=== PATIENT | male | born 1990 | race Caucasian/White ===

== ENCOUNTER 2020-11-30 14:54 | Emergency (ER) | payer MEDICAID ==
[~2020-11-30] VITALS: Ht 170.2 cm; Wt 77.3 kg
[2020-11-30 14:55] VITALS: BP 151/84
== END 2020-11-30 16:18 | disposition left against medical advice (07) ==
LOC: EMS 15:00
DX: R45.6 Violent behavior (principal); Z53.21 Procedure and treatment not carried out due to patient leaving prior to being seen by health care provider

== ENCOUNTER 2020-12-17 20:20 | Inpatient (IN) | payer MEDICAID ==
[~2020-12-17] VITALS: Ht 170.2 cm; Wt 81.8 kg
[2020-12-17 21:38] LABS: BASOPHILS % (AUTO) 0.6 % (0.0-2.0); EOSINOPHILS % (AUTO) 0.6 % (1.0-6.0); HEMATOCRIT 46.2 % (41-53); HEMOGLOBIN 15.7 g/dL (13.5-17.5); LYMPHOCYTES # (AUTO) 2.2 K/uL (1.0-4.8); LYMPHOCYTES % (AUTO) 31.1 % (22.0-44.0); MEAN CORPUSCULAR HEMOGLOBIN 29.9 pg (26.0-34.0); MEAN CORPUSCULAR HGB CONC 34.1 G/dL (31.0-37.0); MEAN CORPUSCULAR VOLUME 88 fL (80-100); MONOCYTES # (AUTO) 0.6 K/uL (0.1-1.0); MONOCYTES % (AUTO) 8.5 % (2.0-9.0); NEUTROPHILS # (AUTO) 4.2 K/uL (1.8-7.7); NEUTROPHILS % (AUTO) 59.2 % (40.0-70.0); PLATELET COUNT (AUTO) 215 K/uL (150-450); RED BLOOD CELL COUNT(AUTO) 5.27 MIL/uL (4.50-5.90); RED CELL DISTRIBUTION WIDTH 13.1 % (11.5-14.5)
[2020-12-17 21:47] LABS: CARBON DIOXIDE 32 mmol/L (22-29); CHLORIDE 104 mmol/L (98-107); POTASSIUM 4.5 mmol/L (3.5-5.1); SODIUM SERUM 140 mmol/L (136-145)
[2020-12-17 21:48] LABS: ANION GAP 4 mmol/L (8-16); CALCIUM, TOTAL 9.2 mg/dL (8.8-10.5); CREATININE 0.96 mg/dL (0.60-1.30); GLOMERULAR FILTR. RATE CALC > 60 mL/min (>60); GLUCOSE,RANDOM 96 mg/dL (70-110); UREA NITROGEN, BLOOD 16 mg/dL (7-18)
[2020-12-17 21:53] LABS: ALANINE AMINOTRANSFERASE 32 U/L (12-78); ALBUMIN 4.4 g/dL (3.4-5.0); ALKALINE PHOSPHATASE 55 U/L (46-116); ASPARTATE AMINOTRANSFERASE 25 U/L (15-37); BILIRUBIN,TOTAL 0.6 mg/dL (0.1-1.0); TOTAL PROTEIN, SERUM 7.8 g/dL (6.4-8.2)
[2020-12-17] MEDS ORDERED: HALOPERIDOL 5 MG TABLET PO PRN (22:30)
[2020-12-17] MEDS ORDERED: LORazepam 2 MG TABLET PO PRN (22:30)
[2020-12-17] MEDS ORDERED: ZOLPIDEM TARTRATE 10 MG TABLET PO PRN (22:30)
[2020-12-17 22:50] LABS: APPEARANCE,URINE CLEAR (CLEAR); BILIRUBIN,URINE NEGATIVE (NEGATIVE); GLUCOSE, URINE (UA) NEGATIVE (NEGATIVE); KETONES,URINE NEGATIVE (NEGATIVE); LEUKOCYTE ESTERASE ,URINE NEGATIVE (NEGATIVE); NITRATE,URINE NEGATIVE (NEGATIVE); OCCULT BLOOD,URINE NEGATIVE (NEGATIVE); PH,URINE 6.5 (5.0-8.0); PROTEIN,URINE NEGATIVE (NEGATIVE); UROBILINOGEN,URINE 0.2 mg/dL (<=1.0)
[2020-12-17 22:58] LABS: AMPHET/METH SCREEN,URINE NEGATIVE (NEGATIVE); BARBITURATE SCREEN, URINE NEGATIVE (NEGATIVE); BENZODIAZEPINES SCREEN,URINE NEGATIVE (NEGATIVE); CANNABINOID SCREEN,URINE NEGATIVE (NEGATIVE); COCAINE SCREEN,URINE NEGATIVE (NEGATIVE); METHADONE SCREEN, URINE NEGATIVE (NEGATIVE); OPIATE SCREEN,URINE NEGATIVE (NEGATIVE); PHENCYCLIDINE SCREEN,URINE NEGATIVE (NEGATIVE)
[2020-12-18 02:19] LABS: COVID AG,FIA SOURCE NASOPHARYNGEAL
[2020-12-18 02:34] LABS: CHOL/HDL RATIO 2.7 (4.2-7.3); CHOLESTEROL 172 mg/dL (131-200); HDL CHOLESTEROL 63 mg/dL (40-60); LDL CHOL (CALC.) 91 mg/dL (0-130); TRIGLYCERIDES 91 mg/dL (15-150)
[2020-12-19] MEDS ORDERED: MAG HYDROX/AL HYDROX/SIMETH ES 30 ML SUSPENSION UDCUP PO PRN (07:00)
[2020-12-19] MEDS ORDERED: GuaiFENesin/D-METHORPHAN [SUGAR-FREE] 200-20MG/10 ML SYRUP UDCUP PO PRN (07:00)
[2020-12-19] MEDS ORDERED: ACETAMINOPHEN 325 MG TABLET PO PRN (07:00)
[2020-12-19] MEDS ORDERED: MAGNESIUM HYDROXIDE SUSPENSION 30 ML UDCUP PO PRN (07:00)
[2020-12-19] MEDS ORDERED: NICOTINE 14 MG/24 HOUR PATCH TD PRN (07:00)
[2020-12-19] MEDS ORDERED: LOPERAMIDE HCL 2 MG CAPSULE PO PRN (07:00)
[2020-12-19] MEDS ORDERED: PETROLATUM,WHITE 28 GM JELLY TP PRN (07:00)
[2020-12-19] MEDS ORDERED: DOCUSATE SODIUM 100 MG CAPSULE PO PRN (07:00)
[2020-12-19] MEDS ORDERED: CloNIDine HCL 0.1 MG TABLET PO PRN (07:00)
[2020-12-19] MEDS ORDERED: IBUPROFEN 400 MG TABLET PO PRN (07:00)
[2020-12-19] MEDS ORDERED: ALBUTEROL SULFATE HFA 90 MCG/PUFF 8 GM INHALER IH PRN (07:00)
[2020-12-19] MEDS ORDERED: ONDANSETRON HCL 4 MG TABLET PO PRN (07:00)
[2020-12-19 08:39] VITALS: BP 122/75
[2020-12-19 16:34] VITALS: BP 123/76
[2020-12-19] MEDS: RisperiDONE 2 MG TABLET PO SCH (16:35)
[2020-12-20 06:19] VITALS: BP 120/78
[2020-12-20 08:21] VITALS: BP 116/67
[2020-12-20] MEDS: RisperiDONE 2 MG TABLET PO SCH ×2 (09:57→16:36)
[2020-12-20 16:44] VITALS: BP 114/70
[2020-12-21 01:45] VITALS: BP 119/75
[2020-12-21 08:48] VITALS: BP 124/72
[2020-12-21] MEDS ORDERED: MULTIVITAMINS WITH MINERALS, THERAPEUTIC TABLET PO SCH (09:00)
[2020-12-21] MEDS: RisperiDONE 2 MG TABLET PO SCH ×2 (09:29→16:46)
[2020-12-21 16:38] VITALS: BP 117/65
[2020-12-21] MEDS ORDERED: RISP2TAB76 PO ×2 (16:39→16:40)
== END 2020-12-21 21:05 | disposition left against medical advice (07) | DRG 750 ==
LOC: EMS 20:22 → B2S 12-18 18:34
PROVIDERS: ADMIT Psychiatry & Neurology Child & Adolescent Psychiatry; ATTEND Psychiatry & Neurology Child & Adolescent Psychiatry
DX: F25.9 Schizoaffective disorder, unspecified (principal); F31.9 Bipolar disorder, unspecified; G47.00 Insomnia, unspecified; R05 Cough; R10.13 Epigastric pain; R03.0 Elevated blood-pressure reading, without diagnosis of hypertension; Z91.14 Patient's other noncompliance with medication regimen; Z20.822 Contact with and (suspected) exposure to COVID-19
CPT/HCPCS: 80053; 80061; 81003; 85025; 99285; G0480

== ENCOUNTER 2023-11-25 09:22 | Inpatient (IN) | payer MEDICAID, OTHER ==
[~2023-11-25] VITALS: Ht 167.6 cm; Wt 83.8 kg
[~2023-11-25 09:22] MED LIST: RISP2TAB76 PO
[2023-11-25 10:20] LABS: BASOPHILS % (AUTO) 0.3 % (0.0-2.0); EOSINOPHILS % (AUTO) 0.2 % (1.0-6.0); HEMATOCRIT 46.9 % (41-53); LYMPHOCYTES # (AUTO) 1.6 K/uL (1.0-4.8); LYMPHOCYTES % (AUTO) 13.6 % (22.0-44.0); MEAN CORPUSCULAR HEMOGLOBIN 30.2 pg (26.0-34.0); MEAN CORPUSCULAR HGB CONC 34.2 G/dL (31.0-37.0); MEAN CORPUSCULAR VOLUME 88 fL (80-100); MONOCYTES % (AUTO) 8.2 % (2.0-9.0); NEUTROPHILS # (AUTO) 9.4 K/uL (1.8-7.7); NEUTROPHILS % (AUTO) 77.7 % (40.0-70.0); PLATELET COUNT (AUTO) 234 K/uL (150-450); RED CELL DISTRIBUTION WIDTH 13.5 % (11.5-14.5)
[2023-11-25 10:22] LABS: ANION GAP 14 mmol/L (8-16); CALCIUM, TOTAL 9.2 mg/dL (8.8-10.5); CARBON DIOXIDE 23 mmol/L (22-29); CHLORIDE 101 mmol/L (98-107); CREATININE 0.97 mg/dL (0.60-1.30); GLOMERULAR FILTR. RATE CALC > 60 mL/min (>60); GLUCOSE,RANDOM 87 mg/dL (70-110); POTASSIUM 3.4 mmol/L (3.5-5.1); SODIUM SERUM 138 mmol/L (136-145); UREA NITROGEN, BLOOD 14 mg/dL (7-18)
[2023-11-25 10:38] LABS: ALCOHOL, BLOOD (SERUM) < 3 mg/dL (0-10)
[2023-11-25 10:53] LABS: COVID AG,FIA SOURCE NASAL SWAB
[2023-11-25] MEDS: HALOPERIDOL LACTATE 5 MG/ML VIAL IM ONE (10:55)
[2023-11-25] MEDS: LORazepam 2 MG/ML VIAL IM ONE (10:55)
[2023-11-25] MEDS: DiphenhydrAMINE HCL 50 MG/ML VIAL IM ONE (10:55)
[2023-11-25 11:12] LABS: SARS-COV2 (COVID) ANTIGEN,FIA Negative (Negative)
[2023-11-25] MEDS ORDERED: HALOPERIDOL 5 MG TABLET PO PRN (12:45)
[2023-11-25] MEDS ORDERED: LORazepam 2 MG TABLET PO PRN (12:45)
[2023-11-25] MEDS ORDERED: ZOLPIDEM TARTRATE 10 MG TABLET PO PRN (12:45)
[2023-11-25] MEDS ORDERED: NICOTINE 14 MG/24 HOUR PATCH TD PRN (19:15)
[2023-11-25] MEDS ORDERED: DOCUSATE SODIUM 100 MG CAPSULE PO PRN (19:15)
[2023-11-25] MEDS ORDERED: IBUPROFEN 400 MG TABLET PO PRN (19:15)
[2023-11-25] MEDS ORDERED: CloNIDine HCL 0.1 MG TABLET PO PRN (19:15)
[2023-11-25] MEDS ORDERED: GuaiFENesin/D-METHORPHAN [SUGAR-FREE] 200-20MG/10 ML SYRUP UDCUP PO PRN (19:15)
[2023-11-25] MEDS ORDERED: LOPERAMIDE HCL 2 MG CAPSULE PO PRN (19:15)
[2023-11-25] MEDS ORDERED: MAGNESIUM HYDROXIDE SUSPENSION 30 ML UDCUP PO PRN (19:15)
[2023-11-25] MEDS ORDERED: ALBUTEROL SULFATE HFA 90 MCG/PUFF 8 GM INHALER IH PRN (19:15)
[2023-11-25] MEDS ORDERED: MAG HYDROX/ALUMINUM HYD/SIMETH ES 30 ML SUSPENSION UDCUP PO PRN (19:15)
[2023-11-25] MEDS ORDERED: PETROLATUM,WHITE 28 GM JELLY TP PRN (19:15)
[2023-11-25] MEDS ORDERED: ACETAMINOPHEN 325 MG TABLET PO PRN (19:15)
[2023-11-25] MEDS ORDERED: ONDANSETRON 4 MG TABLET PO PRN (19:15)
[2023-11-25 21:10] VITALS: BP 116/75; PULSE 85; RESP 18; TEMP 97.5; O2SAT 99
[2023-11-26 07:58] LABS: HEMOGLOBIN A1C 5.1 % (3.8-5.6)
[2023-11-26 08:10] LABS: BASOPHILS % (AUTO) 0.4 % (0.0-2.0); EOSINOPHILS % (AUTO) 1.8 % (1.0-6.0); HEMATOCRIT 48.1 % (41-53); HEMOGLOBIN 16.3 g/dL (13.5-17.5); LYMPHOCYTES # (AUTO) 1.6 K/uL (1.0-4.8); LYMPHOCYTES % (AUTO) 21.1 % (22.0-44.0); MEAN CORPUSCULAR HEMOGLOBIN 30.2 pg (26.0-34.0); MEAN CORPUSCULAR HGB CONC 33.9 G/dL (31.0-37.0); MEAN CORPUSCULAR VOLUME 89 fL (80-100); MONOCYTES # (AUTO) 0.6 K/uL (0.1-1.0); MONOCYTES % (AUTO) 8.8 % (2.0-9.0); NEUTROPHILS % (AUTO) 67.9 % (40.0-70.0); PLATELET COUNT (AUTO) 213 K/uL (150-450); RED BLOOD CELL COUNT(AUTO) 5.39 MIL/uL (4.50-5.90); RED CELL DISTRIBUTION WIDTH 13.9 % (11.5-14.5); WHITE BLOOD COUNT (AUTO) 7.4 K/uL (4.5-11.0)
[2023-11-26 08:18] LABS: ALANINE AMINOTRANSFERASE 65 U/L (12-78); ALBUMIN 3.9 g/dL (3.4-5.0); ALKALINE PHOSPHATASE 56 U/L (46-116); ANION GAP 11 mmol/L (8-16); ASPARTATE AMINOTRANSFERASE 111 U/L (15-37); BILIRUBIN,TOTAL 0.7 mg/dL (0.1-1.0); CALCIUM, TOTAL 8.8 mg/dL (8.8-10.5); CARBON DIOXIDE 26 mmol/L (22-29); CHLORIDE 102 mmol/L (98-107); CHOLESTEROL 127 mg/dL (131-200); GLOMERULAR FILTR. RATE CALC > 60 mL/min (>60); GLUCOSE,RANDOM 80 mg/dL (70-110); HDL CHOLESTEROL 61 mg/dL (40-60); POTASSIUM 3.6 mmol/L (3.5-5.1); SODIUM SERUM 139 mmol/L (136-145); TOTAL PROTEIN, SERUM 7.6 g/dL (6.4-8.2); TRIGLYCERIDES 58 mg/dL (15-150); UREA NITROGEN, BLOOD 17 mg/dL (7-18)
[2023-11-26 08:19] LABS: CHOL/HDL RATIO 2.1 (4.2-7.3); LDL CHOL (CALC.) 54 mg/dL (0-130); THYROID STIMULATING HORMONE 0.31 uIU/mL (0.36-3.74)
[2023-11-26] MEDS: RisperiDONE 2 MG TABLET PO SCH (16:19)
[2023-11-26 20:25] VITALS: BP 105/61; PULSE 75; RESP 17; TEMP 97.6; O2SAT 100
[2023-11-26 21:39] VITALS: BP 105/61; PULSE 75; RESP 18; TEMP 97.6; O2SAT 100
[2023-11-27 08:17] VITALS: BP 118/61; PULSE 81; RESP 16; TEMP 97.7; O2SAT 99
[2023-11-27 08:48] LABS: APPEARANCE,URINE TURBID (CLEAR); BILIRUBIN,URINE NEGATIVE (NEGATIVE); COLOR,URINE LIGHT ORANGE (YELLOW); GLUCOSE, URINE (UA) NEGATIVE (NEGATIVE); KETONES,URINE 40-60 mg/dL (NEGATIVE); LEUKOCYTE ESTERASE ,URINE NEGATIVE (NEGATIVE); NITRATE,URINE NEGATIVE (NEGATIVE); OCCULT BLOOD,URINE NEGATIVE (NEGATIVE); PH,URINE 6.5 (5.0-8.0); PH,URINE DRUG SCREEN 6.5 (5.0-8.0); PROTEIN,URINE 30-70 mg/dL (NEGATIVE); SPECIFIC GRAVITIY, URINE 1.033 (1.003-1.030)
[2023-11-27 08:54] LABS: ALCOHOL, URINE DRUG SCREEN NEGATIVE (NEGATIVE); AMPHET/METH SCREEN,URINE POSITIVE (NEGATIVE); BARBITURATE SCREEN, URINE NEGATIVE (NEGATIVE); BENZODIAZEPINES SCREEN,URINE NEGATIVE (NEGATIVE); CANNABINOID SCREEN,URINE POSITIVE (NEGATIVE); COCAINE SCREEN,URINE NEGATIVE (NEGATIVE); METHADONE SCREEN, URINE NEGATIVE (NEGATIVE); OPIATE SCREEN,URINE NEGATIVE (NEGATIVE); PHENCYCLIDINE SCREEN,URINE NEGATIVE (NEGATIVE)
[2023-11-27] MEDS ORDERED: RISP-32 PO (12:11)
[2023-11-27 23:01] VITALS: RESP 18
[2023-11-28 00:01] VITALS: BP 101/65; PULSE 61; RESP 18; TEMP 97.9; O2SAT 98
[2023-11-28 08:09] VITALS: BP 122/70; PULSE 85; RESP 18; TEMP 97.1; O2SAT 97
== END 2023-11-28 10:49 | disposition home or self-care (01) | DRG 750 ==
LOC: EMS 09:22 → B3A 15:23
PROVIDERS: ADMIT Psychiatry & Neurology Child & Adolescent Psychiatry; ATTEND Psychiatry & Neurology Child & Adolescent Psychiatry
PROC: GZ52ZZZ Individual Psychotherapy, Cognitive (ICD-10-PCS; principal; 2023-11-26)
DX: F25.0 Schizoaffective disorder, bipolar type (principal); Z91.148 Patient's other noncompliance with medication regimen for other reason; D72.829 Elevated white blood cell count, unspecified; E87.6 Hypokalemia; Z20.822 Contact with and (suspected) exposure to COVID-19; F19.10 Other psychoactive substance abuse, uncomplicated; I10 Essential (primary) hypertension; Z87.891 Personal history of nicotine dependence; Z88.0 Allergy status to penicillin
CPT/HCPCS: 80048; 80053; 80061; 80307; 81003; 83036; 84443; 85025; G0480; J1200; J1630; J2060

== ENCOUNTER 2024-01-13 08:07 | Inpatient (IN) | payer MEDICAID, OTHER ==
[~2024-01-13] VITALS: Ht 170.2 cm; Wt 72.6 kg
[~2024-01-13 08:07] MED LIST changes: +RISP-32 PO
[2024-01-13] MEDS ORDERED: OLAN10TA74 PO (08:25)
[2024-01-13] MEDS ORDERED: TIZA-211 PO (08:25)
[2024-01-13] MEDS: HALOPERIDOL LACTATE 5 MG/ML VIAL IM ONE (08:45)
[2024-01-13] MEDS: LORazepam 2 MG/ML VIAL IM ONE (08:45)
[2024-01-13] MEDS: DiphenhydrAMINE HCL 50 MG/ML VIAL IM ONE (08:46)
[2024-01-13 08:55] LABS: BASOPHILS % (AUTO) 0.4 % (0.0-2.0); EOSINOPHILS % (AUTO) 0.7 % (1.0-6.0); HEMATOCRIT 46.7 % (41-53); HEMOGLOBIN 16.2 g/dL (13.5-17.5); LYMPHOCYTES # (AUTO) 1.3 K/uL (1.0-4.8); LYMPHOCYTES % (AUTO) 15.2 % (22.0-44.0); MEAN CORPUSCULAR HEMOGLOBIN 30.6 pg (26.0-34.0); MEAN CORPUSCULAR HGB CONC 34.7 G/dL (31.0-37.0); MEAN CORPUSCULAR VOLUME 88 fL (80-100); MONOCYTES # (AUTO) 0.7 K/uL (0.1-1.0); MONOCYTES % (AUTO) 7.8 % (2.0-9.0); NEUTROPHILS # (AUTO) 6.3 K/uL (1.8-7.7); NEUTROPHILS % (AUTO) 75.9 % (40.0-70.0); PLATELET COUNT (AUTO) 234 K/uL (150-450); RED BLOOD CELL COUNT(AUTO) 5.29 MIL/uL (4.50-5.90); RED CELL DISTRIBUTION WIDTH 13.6 % (11.5-14.5); WHITE BLOOD COUNT (AUTO) 8.4 K/uL (4.5-11.0)
[2024-01-13 09:11] LABS: ANION GAP 9 mmol/L (8-16); CALCIUM, TOTAL 8.3 mg/dL (8.8-10.5); CARBON DIOXIDE 26 mmol/L (22-29); CHLORIDE 103 mmol/L (98-107); CREATININE 0.82 mg/dL (0.60-1.30); GLOMERULAR FILTR. RATE CALC > 60 mL/min (>60); GLUCOSE,RANDOM 95 mg/dL (70-110); POTASSIUM 3.1 mmol/L (3.5-5.1); SODIUM SERUM 138 mmol/L (136-145); UREA NITROGEN, BLOOD 11 mg/dL (7-18)
[2024-01-13 09:20] LABS: ALCOHOL, BLOOD (SERUM) < 3 mg/dL (0-10)
[2024-01-13 10:28] LABS: COVID AG,FIA SOURCE NASAL SWAB
[2024-01-13 10:50] LABS: SARS-COV2 (COVID) ANTIGEN,FIA Negative (Negative)
[2024-01-13] MEDS ORDERED: HALOPERIDOL 5 MG TABLET PO PRN (11:45)
[2024-01-13] MEDS ORDERED: LORazepam 2 MG TABLET PO PRN (11:45)
[2024-01-13] MEDS ORDERED: ZOLPIDEM TARTRATE 10 MG TABLET PO PRN (11:45)
[2024-01-13] MEDS: POTASSIUM CHLORIDE 10% 40 MEQ/30 ML LIQUID UDCUP PO ONE (15:14)
[2024-01-13 15:36] VITALS: BP 116/72; PULSE 102; RESP 18; TEMP 98; O2SAT 99
[2024-01-13 20:25] VITALS: BP 120/77; PULSE 83; RESP 18; TEMP 96.8; O2SAT 99
[2024-01-14 09:04] VITALS: BP 109/72; PULSE 89; RESP 16; TEMP 97.9; O2SAT 100
[2024-01-14] MEDS ORDERED: GuaiFENesin/D-METHORPHAN [SUGAR-FREE] 200-20MG/10 ML SYRUP UDCUP PO PRN (10:00)
[2024-01-14] MEDS ORDERED: PETROLATUM,WHITE 28 GM JELLY TP PRN (10:00)
[2024-01-14] MEDS ORDERED: DOCUSATE SODIUM 100 MG CAPSULE PO PRN (10:00)
[2024-01-14] MEDS ORDERED: MAGNESIUM HYDROXIDE SUSPENSION 30 ML UDCUP PO PRN (10:00)
[2024-01-14] MEDS ORDERED: LOPERAMIDE HCL 2 MG CAPSULE PO PRN (10:00)
[2024-01-14] MEDS ORDERED: ONDANSETRON 4 MG TABLET PO PRN (10:00)
[2024-01-14] MEDS ORDERED: ALBUTEROL SULFATE HFA 90 MCG/PUFF 8 GM INHALER IH PRN (10:00)
[2024-01-14] MEDS ORDERED: NICOTINE 14 MG/24 HOUR PATCH TD PRN (10:00)
[2024-01-14] MEDS ORDERED: ACETAMINOPHEN 325 MG TABLET PO PRN (10:00)
[2024-01-14] MEDS ORDERED: MAG HYDROX/ALUMINUM HYD/SIMETH ES 30 ML SUSPENSION UDCUP PO PRN (10:00)
[2024-01-14] MEDS ORDERED: CloNIDine HCL 0.1 MG TABLET PO PRN (10:00)
[2024-01-14] MEDS ORDERED: IBUPROFEN 400 MG TABLET PO PRN (10:00)
[2024-01-14] MEDS: OLANZapine 10 MG TABLET PO SCH (11:02)
[2024-01-14 22:50] VITALS: BP 113/63; PULSE 64; RESP 16; TEMP 97.4; O2SAT 98
[2024-01-15 08:00] LABS: HEMOGLOBIN A1C 4.7 % (3.8-5.6)
[2024-01-15 08:13] LABS: THYROID STIMULATING HORMONE 0.23 uIU/mL (0.36-3.74)
[2024-01-15 09:05] LABS: CHOL/HDL RATIO 2.3 (4.2-7.3)
[2024-01-15 09:33] VITALS: BP 112/68; PULSE 84; RESP 18; TEMP 97.8; O2SAT 97
[2024-01-15 23:47] VITALS: BP 109/67; PULSE 70; RESP 16; TEMP 98.4; O2SAT 99
[2024-01-16 10:17] VITALS: BP 131/71; PULSE 84; RESP 18; TEMP 97.5; O2SAT 100
[2024-01-16] MEDS ORDERED: OLAN10TA74 PO (14:56)
== END 2024-01-16 17:57 | disposition home or self-care (01) | DRG 750 ==
LOC: EMS 08:07 → 3EI 15:51
PROVIDERS: ADMIT Psychiatry & Neurology Child & Adolescent Psychiatry; ATTEND Psychiatry & Neurology Child & Adolescent Psychiatry
PROC: GZ52ZZZ Individual Psychotherapy, Cognitive (ICD-10-PCS; principal; 2024-01-14)
PROC: GZ56ZZZ Individual Psychotherapy, Supportive (ICD-10-PCS; 2024-01-14)
DX: F25.0 Schizoaffective disorder, bipolar type (principal); Z91.148 Patient's other noncompliance with medication regimen for other reason; E87.6 Hypokalemia; G47.00 Insomnia, unspecified; Z20.822 Contact with and (suspected) exposure to COVID-19; I10 Essential (primary) hypertension; Z87.891 Personal history of nicotine dependence; Z88.0 Allergy status to penicillin
CPT/HCPCS: 80048; 80061; 83036; 84443; 85025; 99285; G0480; J1200; J1630; J2060